=== PATIENT | female | born 1980 | race Caucasian/White ===

== ENCOUNTER 2016-05-19 10:01 | Emergency (ER) | payer OTHER ==
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
[2016-05-19 08:12] LABS: URINE SOURCE CLEAN CATCH
[2016-05-19 08:46] LABS: URINE APPEARANCE CLOUDY; URINE COLOR YELLOW; URINE LEUKOCYTE ESTERASE 3+ (NEG); URINE PH 5.5 (5-8); URINE SPECIFIC GRAVITY 1.023 (1.003-1.035)
[2016-05-19 08:47] LABS: URINE BILIRUBIN NEG (NEG); URINE GLUCOSE 250 MG/DL (NEG); URINE KETONE NEG (NEG); URINE NITRATE POS (NEG); URINE PROTEIN TRACE (NEG); URINE UROBILINOGEN 0.2 MG/DL (NEG)
[2016-05-19 08:48] LABS: CULTURE INDICATED? YES; URINE BACTERIA AUWI 4+ (NEGATIVE); URINE SQUAMOUS EPITHELIAL CELL FEW /[HPF]; UWBCS1 AUWI INNUM (0-5)
[2016-05-19 08:50] LABS: URINE BLOOD 1+ (NEG)
[2016-05-19 09:07] LABS: BASOPHIL# 0.1 X10e3 (0-0.3); BASOPHIL% 0.7 % (0-2.5); DIFF IND NO; EOSINOPHIL# 0.5 X10e3 (0-0.7); EOSINOPHIL% 4.7 % (0.0-7.0); HEMATOCRIT 41.6 % (35.0-45.0); HEMOGLOBIN 13.4 gm/dL (12.0-16.0); LYMPHOCYTE# 4.5 X10e3 (1.0-3.5); LYMPHOCYTE% 40.4 % (17.0-45.0); MEAN CELL VOLUME 97.3 FL (83-96); MEAN CORPUSCULAR HEMOGLOBIN 31.3 PG (28-34); MEAN CORPUSCULAR HGB CONC 32.2 g/dL (30-36); MEAN PLATELET VOLUME 8.8 FL (6.5-11.5); MONOCYTE# 1.1 X10e3 (0-1.0); MONOCYTE% 9.7 % (3.0-12.0); NEUTROPHIL# 4.9 X10e3 (1.5-7.1); NEUTROPHIL% 44.5 % (40-75); PLATELET COUNT 264 X10e3 (140-420); RED BLOOD COUNT 4.28 X10e (3.90-5.30); RED CELL DISTRIBUTION WIDTH 13.7 % (11.0-15.5)
[~2016-05-19 10:01] MED LIST: ATENOLOL50 MG PO; CYMBALTA30 MG PO; HYDROCODON-ACE1 EAC7 PO; INSULIN PUMP; KLONOPIN1 MG PO; MOBIC PO; NEURONTIN600 MG DOB; NORVASC PO; SINGULAIR PO; TYLENOL #3 PO
[2016-05-19 10:04] LABS: BUN/CREATININE RATIO 31.66; CALCIUM SERUM 9.5 mg/dL (8.4-10.2); CREATININE SERUM 0.6 mg/dL (0.6-1.4); GLOM FILT RATE Estimated 116.4 mL/min (>60)
== END 2016-05-19 13:10 | disposition home or self-care (01) ==
LOC: CED 10:01
PROVIDERS: Physician Assistant
DX: N30.01 Acute cystitis with hematuria (principal); E87.6 Hypokalemia; M54.6 Pain in thoracic spine; E11.9 Type 2 diabetes mellitus without complications; I10 Essential (primary) hypertension; F17.210 Nicotine dependence, cigarettes, uncomplicated
CPT/HCPCS: 72158; 80048; 81003; 82947; 83605; 84703; 85025; 87086; 87088; 87186; 96365; 96375; 99284; A9577; J0696; J1885; J2270; J2405